=== PATIENT | female | born 1955 | race Caucasian/White ===

== ENCOUNTER 2017-11-10 14:56 | Inpatient (IN) | payer OTHER ==
[~2017-11-10] VITALS: Ht 152.4 cm; Wt 75.3 kg
[2017-11-10] MEDS ORDERED: SACU1TAB7 PO (15:10)
[2017-11-10] MEDS ORDERED: BUME0.5T5 PO (15:10)
[2017-11-10] MEDS ORDERED: METF-815 PO (15:10)
[2017-11-10] MEDS ORDERED: ASPIRIN 81MG TABLET PO ONE (15:30)
[2017-11-10] MEDS ORDERED: FUROSEMIDE 40MG/4ML VIAL IV ONE (15:30)
[2017-11-10] MEDS: NITROGLYCERIN OINT 1GM/INCH UDPKT TD ONE ×2 (15:30→15:54)
[2017-11-10 15:49] LABS: BASOPHILS % 0.9 % (0.0-2.0); EOSINOPHILS % 0.4 % (0.0-5.0); HEMOGLOBIN. 15.5 g/dL (12.0-16.0); LYMPHOCYTES % 33.4 % (20.0-50.0); MEAN CORPUSCULAR VOLUME 97.9 fL (81.0-99.0); MONOCYTES % 8.8 % (2.0-8.0); NEUTROPHILS % 56.5 % (40.0-76.0); PLATELET 177 x1000/uL (130-400); RED CELL DISTRIBUTION WIDTH 15.1 % (11.6-14.6)
[2017-11-10 15:50] LABS: CHLORIDE 98 mEq/L (98-107)
[2017-11-10] MEDS ORDERED: AMIODARONE HCL 900 MG in DEXT 5% WATER 482 ML IV STA ×2 (15:54→16:06)
[2017-11-10 15:55] LABS: INR 1.8; PARTIAL THROMBOPLASTIN TIME 28.7 sec (23.4-31.0)
[2017-11-10] MEDS ORDERED: AMIODARONE HCL 50MG/ML 3ML VIAL IV ONE (16:00)
[2017-11-10] MEDS ORDERED: GUAIFENESIN 200MG/10ML SUGAR FREE UDC PO PRN (20:30)
[2017-11-10] MEDS ORDERED: CLONIDINE 0.1MG TABLET PO PRN (20:30)
[2017-11-10] MEDS ORDERED: ONDANSETRON HCL 4MG/2ML INJ IV PRN (20:30)
[2017-11-10] MEDS ORDERED: NA PHOS,M-B/NA PHOS,DI-BA ENEMA 118ML PR PRN (20:30)
[2017-11-10] MEDS ORDERED: DIPHENHYDRAMINE 50MG/ML VIAL IV PRN (20:30)
[2017-11-10] MEDS ORDERED: ACETAMINOPHEN 325MG TABLET PO PRN (20:30)
[2017-11-10] MEDS ORDERED: DOCUSATE SODIUM 100MG CAPSULE PO PRN (20:30)
[2017-11-10] MEDS ORDERED: LORAZEPAM 2MG/ML CPJ IV PRN (20:30)
[2017-11-10] MEDS ORDERED: IPRATROPIUM/ALBUTEROL 0.5-3(2.5)MG/3ML NEB INH PRN (20:30)
[2017-11-10] MEDS ORDERED: MAGNESIUM/ALUMINUM HYDROXIDE/SIMETHICONE 30ML UDC PO PRN (20:30)
[2017-11-10] MEDS ORDERED: HYDROMORPHONE HCL/PF 2MG/ML CPJ IV PRN (20:30)
[2017-11-10] MEDS ORDERED: HYDROCODONE/ACETAMINOPHEN 5/325MG TABLET PO PRN (20:30)
[2017-11-10 20:35] VITALS: BP 104/52
[2017-11-10 21:17] VITALS: BP 79/42
[2017-11-10 21:53] VITALS: BP 99/51
[2017-11-10] MEDS ORDERED: DEXTROSE 50% WATER 50ML SYRINGE IV PRN (22:30)
[2017-11-10] MEDS ORDERED: SODIUM CHLORIDE 0.9% 250 ML IV PRN (22:45)
[2017-11-10] MEDS: INSULIN LISPRO 100 UNITS/ML SUBCUT SCH (23:00)
[2017-11-10] MEDS: BLOOD SUGAR DIAGNOSTIC STRIP TEST SCH (23:01)
[2017-11-10 23:03] VITALS: BP 91/66
[2017-11-10] MEDS: ENOXAPARIN 40MG/0.4ML SYR SUBCUT SCH (23:05)
[2017-11-11] VITALS (13 sets, daily range): BP systolic 83–133; BP diastolic 31–81
[2017-11-11] MEDS: BLOOD SUGAR DIAGNOSTIC STRIP TEST SCH ×5 (06:18→19:34)
[2017-11-11 06:44] LABS: BASOPHILS % 0.5 % (0.0-2.0); HEMATOCRIT. 42.1 % (36.0-48.0); HEMOGLOBIN. 14.4 g/dL (12.0-16.0); LYMPHOCYTES % 21.4 % (20.0-50.0); MEAN CORPUSCULAR HEMOGLOBIN 33.2 pg (28.0-32.0); MEAN CORPUSCULAR VOLUME 97.4 fL (81.0-99.0); MEAN PLATELET VOLUME 9.2 fl (7.4-10.4); MONOCYTES % 8.5 % (2.0-8.0); NEUTROPHILS % 69.6 % (40.0-76.0); PLATELET 146 x1000/uL (130-400); RED BLOOD CELL COUNT 4.33 mill/uL (4.2-5.4)
[2017-11-11 07:02] LABS: CHLORIDE 98 mEq/L (98-107)
[2017-11-11 07:14] LABS: LDL CHOLESTEROL 86 mg/dL (5-100)
[2017-11-11 07:16] LABS: HDL CHOLESTEROL 24 mg/dL (40-59)
[2017-11-11] MEDS: INSULIN LISPRO 100 UNITS/ML SUBCUT SCH ×4 (07:20→20:44)
[2017-11-11] MEDS: ASPIRIN 81MG EC TABLET PO SCH (09:00)
[2017-11-11] MEDS: FUROSEMIDE 40MG/4ML VIAL IV SCH ×2 (09:00→10:36)
[2017-11-11] MEDS: AMIODARONE HCL 200 MG TABLET PO SCH ×2 (09:00→20:32)
[2017-11-11] MEDS: MAGNESIUM OXIDE 400MG TABLET PO SCH ×2 (10:20→20:41)
[2017-11-11] MEDS: CARVEDILOL 6.25 MG TABLET PO SCH ×2 (10:27→20:32)
[2017-11-11] MEDS ORDERED: MAGNESIUM SULFATE 2 GM in DEXTROSE 5% WATER 50 ML IV SCH (11:30)
[2017-11-11] MEDS ORDERED: MORPHINE SULFATE 4 MG/ML CPJ (NOT FOR IM USE) IV PRN (14:30)
[2017-11-11] MEDS: ENOXAPARIN 40MG/0.4ML SYR SUBCUT SCH (20:43)
[2017-11-12] VITALS (12 sets, daily range): BP systolic 88–120; BP diastolic 51–78
[2017-11-12] MEDS: BLOOD SUGAR DIAGNOSTIC STRIP TEST SCH ×4 (06:35→21:55)
[2017-11-12 06:36] LABS: BASOPHILS % 1.4 % (0.0-2.0); EOSINOPHILS % 1.5 % (0.0-5.0); HEMATOCRIT. 42.5 % (36.0-48.0); HEMOGLOBIN. 14.7 g/dL (12.0-16.0); LYMPHOCYTES % 29.9 % (20.0-50.0); MEAN CORPUSCULAR HEMOGLOBIN 33.5 pg (28.0-32.0); MEAN CORPUSCULAR VOLUME 96.8 fL (81.0-99.0); MEAN PLATELET VOLUME 9.5 fl (7.4-10.4); MONOCYTES % 7.9 % (2.0-8.0); NEUTROPHILS % 59.3 % (40.0-76.0); PLATELET 161 x1000/uL (130-400); RED BLOOD CELL COUNT 4.39 mill/uL (4.2-5.4); RED CELL DISTRIBUTION WIDTH 14.6 % (11.6-14.6)
[2017-11-12] MEDS: INSULIN LISPRO 100 UNITS/ML SUBCUT SCH ×4 (07:20→22:11)
[2017-11-12] MEDS: ASPIRIN 81MG EC TABLET PO SCH (08:14)
[2017-11-12] MEDS: AMIODARONE HCL 200 MG TABLET PO SCH ×2 (08:14→22:06)
[2017-11-12] MEDS: MAGNESIUM OXIDE 400MG TABLET PO SCH ×2 (08:14→17:25)
[2017-11-12] MEDS: CARVEDILOL 6.25 MG TABLET PO SCH ×2 (08:14→22:05)
[2017-11-12] MEDS: FUROSEMIDE 40MG/4ML VIAL IV SCH (08:14)
[2017-11-12] MEDS: POTASSIUM CHLORIDE 20MEQ TABLET SR PO SCH (09:21)
[2017-11-12] MEDS: ENOXAPARIN 40MG/0.4ML SYR SUBCUT SCH (22:07)
[2017-11-13] VITALS (16 sets, daily range): BP systolic 78–104; BP diastolic 45–80
[2017-11-13] MEDS: BLOOD SUGAR DIAGNOSTIC STRIP TEST SCH ×4 (05:41→21:04)
[2017-11-13 06:41] LABS: EOSINOPHILS % 0.9 % (0.0-5.0); HEMATOCRIT. 43.6 % (36.0-48.0); HEMOGLOBIN. 14.8 g/dL (12.0-16.0); MEAN CORPUSCULAR HEMOGLOBIN 33.2 pg (28.0-32.0); MEAN CORPUSCULAR VOLUME 97.7 fL (81.0-99.0); MEAN PLATELET VOLUME 9.3 fl (7.4-10.4); NEUTROPHILS % 58.1 % (40.0-76.0); PLATELET 170 x1000/uL (130-400); RED BLOOD CELL COUNT 4.46 mill/uL (4.2-5.4)
[2017-11-13 07:05] LABS: CHLORIDE 101 mEq/L (98-107)
[2017-11-13] MEDS: INSULIN LISPRO 100 UNITS/ML SUBCUT SCH ×4 (07:13→21:10)
[2017-11-13] MEDS: CARVEDILOL 6.25 MG TABLET PO SCH ×2 (08:32→21:00)
[2017-11-13] MEDS: ASPIRIN 81MG EC TABLET PO SCH (08:32)
[2017-11-13] MEDS: MAGNESIUM OXIDE 400MG TABLET PO SCH ×2 (08:32→17:17)
[2017-11-13] MEDS: POTASSIUM CHLORIDE 20MEQ TABLET SR PO SCH (08:32)
[2017-11-13] MEDS: FUROSEMIDE 40MG/4ML VIAL IV SCH (08:32)
[2017-11-13] MEDS: AMIODARONE HCL 200 MG TABLET PO SCH ×2 (09:24→21:00)
[2017-11-13] MEDS: ENOXAPARIN 40MG/0.4ML SYR SUBCUT SCH (21:01)
[2017-11-14] VITALS (13 sets, daily range): BP systolic 80–135; BP diastolic 31–78
[2017-11-14] MEDS: BLOOD SUGAR DIAGNOSTIC STRIP TEST SCH ×3 (06:11→17:14)
[2017-11-14 06:49] LABS: BASOPHILS % 1.2 % (0.0-2.0); EOSINOPHILS % 0.9 % (0.0-5.0); HEMATOCRIT. 43.8 % (36.0-48.0); LYMPHOCYTES % 41.1 % (20.0-50.0); MEAN CORPUSCULAR HEMOGLOBIN 33.7 pg (28.0-32.0); MEAN CORPUSCULAR VOLUME 98.1 fL (81.0-99.0); MEAN PLATELET VOLUME 9.1 fl (7.4-10.4); NEUTROPHILS % 45.8 % (40.0-76.0); PLATELET 182 x1000/uL (130-400); RED BLOOD CELL COUNT 4.47 mill/uL (4.2-5.4)
[2017-11-14] MEDS: POTASSIUM CHLORIDE 20MEQ TABLET SR PO SCH (09:46)
[2017-11-14] MEDS: AMIODARONE HCL 200 MG TABLET PO SCH (09:47)
[2017-11-14] MEDS: FUROSEMIDE 40MG/4ML VIAL IV SCH (09:47)
[2017-11-14] MEDS: CARVEDILOL 6.25 MG TABLET PO SCH (09:47)
[2017-11-14] MEDS: MAGNESIUM OXIDE 400MG TABLET PO SCH (09:47)
[2017-11-14] MEDS: ASPIRIN 81MG EC TABLET PO SCH (09:47)
[2017-11-14] MEDS: INSULIN LISPRO 100 UNITS/ML SUBCUT SCH ×3 (09:50→17:14)
[2017-11-14] MEDS ORDERED: CARVEDILOL 3.125 MG TABLET PO SCH (21:00)
== END 2017-11-14 18:14 | disposition home or self-care (01) | DRG 201 ==
LOC: ER 15:28 → EDBEDREQ 16:01 → 3WST 16:58 → EDBEDREQTM 17:00 → EDBEDREQ 17:00 → ENRESERV 19:50
PROVIDERS: ADMIT Internal Medicine; ATTEND Internal Medicine
DX: I48.92 Unspecified atrial flutter (principal); J96.00 Acute respiratory failure, unspecified whether with hypoxia or hypercapnia; I50.43 Acute on chronic combined systolic (congestive) and diastolic (congestive) heart failure; E46 Unspecified protein-calorie malnutrition; D68.9 Coagulation defect, unspecified; I42.0 Dilated cardiomyopathy; I95.9 Hypotension, unspecified; E83.42 Hypomagnesemia; I13.0 Hypertensive heart and chronic kidney disease with heart failure and stage 1 through stage 4 chronic kidney disease, or unspecified chronic kidney disease; I48.91 Unspecified atrial fibrillation; K76.0 Fatty (change of) liver, not elsewhere classified; E11.9 Type 2 diabetes mellitus without complications; E78.5 Hyperlipidemia, unspecified; E78.00 Pure hypercholesterolemia, unspecified; E66.09 Other obesity due to excess calories; D64.9 Anemia, unspecified; I34.0 Nonrheumatic mitral (valve) insufficiency; G24.9 Dystonia, unspecified; I25.10 Atherosclerotic heart disease of native coronary artery without angina pectoris; K80.20 Calculus of gallbladder without cholecystitis without obstruction; I44.7 Left bundle-branch block, unspecified; Z68.32 Body mass index [BMI] 32.0-32.9, adult; Z79.84 Long term (current) use of oral hypoglycemic drugs; Z79.899 Other long term (current) drug therapy; N18.1 Chronic kidney disease, stage 1
CPT/HCPCS: 36415; 71045; 71046; 76700; 80048; 80053; 80061; 82962; 83735; 83880; 84134; 84439; 84443; 84484; 85025; 85610; 85730; 93005; 93306; 96374; 96375; 99291; J0282; J1650; J1815; J1940; J3475; J7050; J7060